=== PATIENT | male | born 1970 | race Hispanic/Latino ===

== ENCOUNTER 2017-01-01 09:12 | Emergency (ER) | payer OTHER ==
[2017-01-01] MEDS ORDERED: ONDANSETRON ODT 8 MG TAB SL SCH (09:30)
[2017-01-01] MEDS ORDERED: SODIUM CHLORIDE 0.9% 1000ML 1,000 ML IVS ONE (09:31)
[2017-01-01 09:32] VITALS: TEMP 100.3
--- NOTE | 2017-01-01 09:56 | RAD ---
EXAM DESCRIPTION: Abdomen Series CLINICAL HISTORY: abd pain, n/v COMPARISON: None. FINDINGS: AP supine and upright views of the abdomen show a nonspecific, nonobstructive bowel gas pattern with no evidence for free intraperitoneal air. No air-filled dilated loops of small bowel are seen. No significant air-fluid levels are identified. No obvious organomegaly is seen. No abnormal calcifications are seen in the expected location of the renal collecting systems. Single view of the chest shows cardiac silhouette and pulmonary vasculature to be within normal limits. Lungs are normally aerated and clear IMPRESSION: Nonspecific abdominal series Electronically signed by: Gomez Bahena MD 01/01/2017 9:55 AM CDT
--- NOTE | 2017-01-01 10:49 | ED.PDOC ---
History of Present Illness - General Chief Complaint: Fever Stated Complaint: fever, aches Time Seen by Provider: 01/01/17 09:13 Source: patient Exam Limitations: no limitations - History of Present Illness Initial Comments: the patient is a 46-year-old male presenting to the emergency room secondary to nausea and vomiting for the last 2 days. The episodes starting after eating barbecue. Initially there was epigastric pain. The pain has resolved however he has been left with the nausea and vomiting. No blood and no bowel. Mild diarrhea. He has had fevers. The patient does have a long- standing history of heartburn that is only intermittently treated. No known sick contacts. No previous abdominal surgeries. No chest pain and no rashes. Severity: moderate Improving Factors: nothing Worsening Factors: nothing, eating Associated Symptoms: fever/chills, loss of appetite, malaise, nausea/vomiting Allergies/Adverse Reactions: Allergies NO KNOWN ALLERGY Allergy (Verified 01/01/17 09:30) Home Medications: Ambulatory Orders Famotidine 20 mg PO DAILY #30 tab 01/01/17 Meclizine HCl 25 mg PO TID PRN 01/01/17 Ondansetron [Zofran Odt] 4 mg PO Q4H PRN #10 tab 01/01/17 Sertraline HCl [Zoloft] 100 mg PO DAILY 01/01/17 Sucralfate Tab [Carafate Tab] 1 gm PO QID #120 tab 01/01/17 Review of Systems - Review of Systems Constitutional: States: fever, malaise EENTM: States: no symptoms reported Respiratory: States: no symptoms reported Cardiology: States: no symptoms reported Gastrointestinal/Abdominal: States: see HPI Genitourinary: States: no symptoms reported Musculoskeletal: States: no symptoms reported Skin: States: no symptoms reported Neurological: States: headache - mild for the last day Endocrine: States: no symptoms reported All other Systems: No Change from Baseline Past Medical History (General) - Patient Medical History Hx Stroke: No Hx Congestive Heart Failure: No Hx Diabetes: No Hx Gastroesophageal Reflux: - Takes TUMS prn indigestion Hx MRSA: No - Vaccination History Hx Influenza Vaccination: Yes - 2016 Hx Pneumococcal Vaccination: No - Social History Hx Tobacco Use: No Family Medical History - Family History Father Family History: No Known Living Status: Still Living Physical Exam - Physical Exam General Appearance: Alert, No apparent distress Eye Exam: bilateral normal Ears, Nose, Throat: normal ENT inspection Neck: non-tender, full range of motion, supple Respiratory: chest non-tender, lungs clear, normal breath sounds, no respiratory distress, no accessory muscle use Cardiovascular/Chest: normal peripheral pulses, regular rate, rhythm, no edema Peripheral Pulses: radial,right: 2+, radial,left: 2+, dorsalis pedis,right: 2+, dorsalis pedis,left: 2+ Gastrointestinal/Abdominal: non tender, soft, other - no rebound or peritoneal signs. No palpable masses. No bruising. Rectal Exam: deferred Back Exam: normal inspection, no CVA tenderness, no vertebral tenderness Extremity: normal range of motion, non-tender, normal inspection, no pedal edema , normal capillary refill Neurologic: alert, normal mood/affect, oriented x 3 Skin Exam: normal color Comments: Vital Signs - 24 hr 01/01/17 09:31 Temperature 100.3 F H Pulse Rate [ 92 H Left Radial] Respiratory 18 Rate Blood Pressure 128/73 [Left Arm] O2 Sat by Pulse 97 Oximetry Progress - Progress Progress: 01/01/17 10:50 the patient is a 46-year-old male presenting with gastroenteritis. This is likely on top of a chronic gastritis and esophagitis. The patient will be written for Zofran to help control vomiting and keep hydrated. He will also be placed on Pepcid and Carafate for the near future. He needs to maintain a bland diet. ER warnings were given for any worsening. Continue Tylenol for fever control. Follow up with primary care doctor within the next 2-3 days. - Results/Orders Results/Orders: Laboratory Tests 01/01/17 01/01/17 01/01/17 09:35 09:35 09:40 WBC 9.8 RBC 4.75 Hgb 13.9 L Hct 42.2 MCV 88.8 MCH 29.2 MCHC 33.0 RDW 13.6 Plt Count 241 MPV 6.6 L Absolute Neuts (auto) 8.50 H Absolute Lymphs (auto) 0.60 L Absolute Monos (auto) 0.50 Absolute Eos (auto) 0.10 Absolute Basos (auto) 0.00 Neutrophils % 87.5 H Lymphocytes % 6.0 L Monocytes % 5.4 Eosinophils % 0.8 L Basophils % 0.3 Sodium 137 Potassium 3.6 Chloride 102 Carbon Dioxide 27 Anion Gap 11.6 L BUN 10 Creatinine 0.73 BUN/Creatinine Ratio 13.7 Random Glucose 131 H Serum Osmolality 274.7 L Calcium 8.7 Total Bilirubin 0.5 AST 30 ALT 31 Alkaline Phosphatase 85 Creatine Kinase 107 CK-MB (CK-2) 0.8 CK-MB (CK-2) % Not Reportable Troponin I < 0.02 Serum Total Protein 7.3 Albumin 4.1 Globulin 3.2 Albumin/Globulin Ratio 1.3 Amylase 59 Lipase 25 Urine Color Yellow Urine Appearance Clear Urine pH 6.5 Ur Specific [place] 1.015 Urine Protein Negative Urine Glucose (UA) Negative Urine Ketones Negative Urine Blood Negative Urine Nitrite Negative Urine Bilirubin Negative Urine Urobilinogen 1.0 Ur Leukocyte Esterase Negative Urine RBC 0-1 Urine WBC 0 Ur Epithelial Cells 0-1 Urine Bacteria 0 flu swab is negative. Abdominal series shows no infiltrates in the chest and nonspecific bowel gas pattern. Departure - Departure Clinical Impression: Gastroenteritis, Dehydration, mild Disposition: Discharge to Home or Self Care Condition: Fair Departure Forms: ED Discharge - Pt. Copy, Patient Portal Self Enrollment Instructions: DI for Viral Gastroenteritis -- Adult, DI for Esophagitis Diet: bland diet Activity: increase activity as tolerated Prescriptions: Famotidine 20 mg PO DAILY #30 tab Ondansetron [Zofran Odt] 4 mg PO Q4H PRN #10 tab PRN Reason: Vomiting Sucralfate Tab [Carafate Tab] 1 gm PO QID #120 tab Home Medications: Ambulatory Orders Famotidine 20 mg PO DAILY #30 tab 01/01/17 Meclizine HCl 25 mg PO TID PRN 01/01/17 Ondansetron [Zofran Odt] 4 mg PO Q4H PRN #10 tab 01/01/17 Sertraline HCl [Zoloft] 100 mg PO DAILY 01/01/17 Sucralfate Tab [Carafate Tab] 1 gm PO QID #120 tab 01/01/17 Additional Instructions: the patient is a 46-year-old male presenting with gastroenteritis. This is likely on top of a chronic gastritis and esophagitis. The patient will be written for Zofran to help control vomiting and keep hydrated. He will also be placed on Pepcid and Carafate for the near future. He needs to maintain a bland diet. ER warnings were given for any worsening. Continue Tylenol for fever control. Follow up with primary care doctor within the next 2-3 days.
[2017-01-01 11:47] VITALS: BP 101/59; O2SAT 95
== END 2017-01-01 11:34 | disposition home or self-care (01) ==
LOC: ER 09:12
DX: K52.9 Noninfective gastroenteritis and colitis, unspecified (principal); E86.0 Dehydration
CPT/HCPCS: 74020; 80053; 81001; 82150; 82550; 82553; 83690; 84484; 85025; 87502; J7030